=== PATIENT | male | born 1990 | race Caucasian/White ===

== ENCOUNTER 2017-04-20 08:49 | Emergency (ER) | payer MEDICAID ==
[~2017-04-20] VITALS: Ht 180.3 cm; Wt 72.6 kg
[2017-04-20 08:49] VITALS: BP 126/80
[2017-04-20] MEDS ORDERED: KETOROLAC TROMETHAMINE INJ 60 MG/2 ML VIAL IM ONE (09:00)
[2017-04-20] MEDS ORDERED: KETOROLAC TROMETHAMINE INJ 30 MG/ML VIAL ONE (09:10)
== END 2017-04-20 09:15 | disposition home or self-care (01) ==
LOC: ER 08:52
DX: M54.6 Pain in thoracic spine (principal)
CPT/HCPCS: 96372; 99283; A4606; J1885; Z7610

== ENCOUNTER 2017-04-23 13:03 | Emergency (ER) | payer MEDICAID ==
[~2017-04-23] VITALS: Ht 180.3 cm; Wt 72.6 kg
[2017-04-23 13:06] VITALS: BP 127/76
[2017-04-23] MEDS ORDERED: ONDANSETRON 4 MG TAB.RAPDIS SL ONE (13:30)
[2017-04-23] MEDS ORDERED: KETOROLAC TROMETHAMINE INJ 60 MG/2 ML VIAL IM ONE (13:30)
[2017-04-23] MEDS ORDERED: MORPHINE SULFATE INJ 2 MG/ML DISP.SYRIN IV ONE (13:30)
[2017-04-23] MEDS ORDERED: ONDANSETRON 4 MG TAB.RAPDIS ONE (13:34)
[2017-04-23] MEDS ORDERED: MORPHINE SULFATE INJ 4 MG/ML DISP.SYRIN ONE (13:34)
[2017-04-23] MEDS ORDERED: KETOROLAC TROMETHAMINE INJ 30 MG/ML VIAL ONE (13:34)
== END 2017-04-23 13:49 | disposition home or self-care (01) ==
LOC: ER 13:09
DX: G89.29 Other chronic pain (principal); M54.6 Pain in thoracic spine; F17.200 Nicotine dependence, unspecified, uncomplicated; Z60.2 Problems related to living alone
CPT/HCPCS: A4606; J1885; J2270; Q0162; Z7610